=== PATIENT | male | born 1975 | race African-American/Black ===

== ENCOUNTER 2017-08-09 23:12 | Emergency (ER) | payer MEDICAID ==
[~2017-08-09] VITALS: Ht 177.8 cm; Wt 66.0 kg
[2017-08-10] MEDS ORDERED: ACETAMINOPHEN 325MG TABLET PO ONE (01:30)
[2017-08-10] MEDS ORDERED: BACITRACIN ZINC 15GM TUBE TOP ONE (01:45)
[2017-08-10 07:10] VITALS: BP 111/67
== END 2017-08-10 07:12 | disposition home or self-care (01) ==
LOC: ER 23:12
DX: M96.830 Postprocedural hemorrhage of a musculoskeletal structure following a musculoskeletal system procedure (principal); M79.605 Pain in left leg
CPT/HCPCS: 99283; Z7610